=== PATIENT | male | born 1995 | race African-American/Black ===

== ENCOUNTER 2020-05-17 09:55 | Emergency (ER) | payer MEDICAID, OTHER ==
[~2020-05-17] VITALS: Ht 182.9 cm; Wt 90.9 kg
[2020-05-17] MEDS ORDERED: KETOROLAC 30MG/ML VIAL IM ONE (12:00)
[2020-05-17] MEDS ORDERED: IBUPROFEN 600MG TABLET PO ONE (12:00)
[2020-05-17 13:03] VITALS: BP 136/91
== END 2020-05-17 13:04 | disposition home or self-care (01) ==
LOC: ER 09:55
DX: S40.021A Contusion of right upper arm, initial encounter (principal); X58.XXXA Exposure to other specified factors, initial encounter; Y93.89 Activity, other specified; Y92.89 Other specified places as the place of occurrence of the external cause; Y99.8 Other external cause status
CPT/HCPCS: 29125; 73080; 73090; 73110; 99284; J1885

== ENCOUNTER 2022-06-08 16:02 | Emergency (ER) | payer MEDICAID ==
[~2022-06-08] VITALS: Ht 180.3 cm; Wt 106.0 kg
[~2022-06-08 16:02] MED LIST: CEPH500C2 MT; HYDR-4001 MT
[2022-06-08] MEDS ORDERED: ACETAMINOPHEN WITH CODEINE 300/30MG TABLET PO ONE (17:30)
[2022-06-08] MEDS ORDERED: LIDOCAINE HCL/EPINEPHRINE 1%-EPI 1:100,000 20 ML VIAL INFIL ONE (17:30)
[2022-06-08] MEDS ORDERED: BACITRACIN ZINC OINT UDPKT TOP ONE (17:30)
[2022-06-08] MEDS ORDERED: CEPH500T MT (19:51)
[2022-06-08] MEDS ORDERED: IBUP-2029 MT (19:51)
[2022-06-08 20:13] VITALS: BP 128/75
== END 2022-06-08 20:14 | disposition home or self-care (01) ==
LOC: ER 16:02
DX: L02.01 Cutaneous abscess of face (principal)
CPT/HCPCS: 10060; 99283; J3490; Z7610